=== PATIENT | female | born 1990 | race Caucasian/White ===

== ENCOUNTER 2024-08-29 12:17 | Emergency (ER) | payer MEDICAID ==
[~2024-08-29] VITALS: Ht 154.9 cm; Wt 53.5 kg
[2024-08-29 14:56] LABS: *BILIRUBIN,URIN NEGATIVE (NEGATIVE); *CLARITY,URINE CLEAR (CLEAR); *COLOR,URINE YELLOW (YELLOW); *KETONES,URINE 2+ (NEGATIVE); *PROTEIN,URINE NEGATIVE (NEGATIVE); *UROBILINOGEN,URINE 0.2 E.U./dl (NORMAL); LEUKOCYTE ESTERASE ,URINE NEGATIVE (NEGATIVE); NITRITE, URINE NEGATIVE (NEGATIVE); PH,URINE 6.5 (5.0-8.0); UGLUCOSE NEGATIVE (NEGATIVE)
[2024-08-29] MEDS ORDERED: AZIT500T PO (15:22)
[2024-08-29] MEDS ORDERED: AZIT500T4 PO (15:27)
[2024-08-29 15:31] VITALS: BP 129/77; O2SAT 99
[2024-08-29 15:33] LABS: *BLOOD, URINE TRACE (NEGATIVE)
[2024-08-29 15:34] LABS: *URINE HCG, QUAL NEGATIVE (NEGATIVE)
[2024-08-29 16:07] LABS: RBC,URINE 0-3 /HPF (0-3)
[2024-08-29 16:08] LABS: BACTERIA,URINE FEW /HPF (NONE SEEN); SQUAMOUS EPITHELIAL CELL,UR FEW /HPF (NONE SEEN); WBC,URINE NONE SEEN /HPF (0-3)
== END 2024-08-29 15:31 | disposition home or self-care (01) ==
LOC: ER 12:18
DX: N34.1 Nonspecific urethritis (principal); Z79.899 Other long term (current) drug therapy
CPT/HCPCS: 84703; A4606; A4663